=== PATIENT | female | born 2000 | race Caucasian/White ===

== ENCOUNTER 2022-03-23 01:48 | Emergency (ER) | payer OTHER ==
[~2022-03-23] VITALS: Ht 165.1 cm; Wt 63.5 kg
--- NOTE | 2022-03-23 02:14 | NUR ---
Patient came in to the er c/o R shoulde rpain s/p hit on the wall. On room air, breathing normally and unlabored. Kept comfortable, will continue to monitor accordingly.
[2022-03-23] MEDS ORDERED: NAPROXEN 250 MG TABLET ONE (02:42)
[2022-03-23] MEDS ORDERED: NAPROXEN 250 MG TABLET PO ONE (03:00)
--- NOTE | 2022-03-23 04:08 | NUR ---
PT OK TO DISCHARGE HOME PER DR COUGHLIN. Patient discharged to home in stable condition. Written and verbal after care instructions given. Patient verbalizes understanding of instruction.Patient is awake and alert to self, day, and place. PT ambulatory with a steady gait
[2022-03-23 04:09] VITALS: BP 118/75
== END 2022-03-23 04:09 | disposition home or self-care (01) ==
LOC: ER 01:48
DX: S40.011A Contusion of right shoulder, initial encounter (principal); W22.01XA Walked into wall, initial encounter; Y93.89 Activity, other specified; Y92.89 Other specified places as the place of occurrence of the external cause; Y99.8 Other external cause status
CPT/HCPCS: 73030-TC

== ENCOUNTER 2024-04-19 15:27 | Emergency (ER) | payer MEDICAID, OTHER ==
[~2024-04-19] VITALS: Ht 167.6 cm; Wt 61.2 kg
[2024-04-19] MEDS ORDERED: MAG HYDROX/AL HYDROX/SIMETH 30 ML UDC ONE (16:16)
[2024-04-19] MEDS ORDERED: FAMOTIDINE (20 MG) 20 MG TABLET ONE (16:17)
[2024-04-19] MEDS: FAMOTIDINE (20 MG) 20 MG TABLET PO ONE (16:20)
[2024-04-19] MEDS: MAG HYDROX/AL HYDROX/SIMETH 30 ML UDC PO ONE (16:20)
[2024-04-19 16:36] LABS: PREGNANCY TEST URINE QUAL NEGATIVE (NEGATIVE)
[2024-04-19 16:53] LABS: BASOPHILS # (AUTO) 0.1 K/uL (0.0-0.2); BASOPHILS % (AUTO) 1.4 % (0.0-2.0); EOSINOPHILS # (AUTO) 0.5 K/uL (0.0-0.7); EOSINOPHILS % (AUTO) 5.5 % (0.0-6.0); HEMATOCRIT 38 % (33-45); HEMOGLOBIN 12.6 g/dL (11.5-14.8); LYMPHOCYTES # (AUTO) 2.7 K/uL (0.8-4.8); LYMPHOCYTES % (AUTO) 32.2 % (20.0-44.0); MEAN CORPUSCULAR HEMOGLOBIN 28 PG (26.0-33.0); MEAN CORPUSCULAR HGB CONC 33 g/dl (31.0-36.0); MEAN CORPUSCULAR VOLUME 84 fL (82-100); MONOCYTES # (AUTO) 0.6 K/uL (0.1-1.30); MONOCYTES % (AUTO) 7.3 % (2.0-12.0); NEUTROPHILS # (AUTO) 4.5 K/uL (1.8-8.9); NEUTROPHILS % (AUTO) 53.6 % (43.0-81.0); PLATELET COUNT (AUTO) 271 K/uL (150-450); RED BLOOD CELL COUNT(AUTO) 4.48 MIL/uL (4.0-5.2); RED CELL DISTRIBUTION WIDTH 14.6 % (11.5-15.0); WHITE BLOOD COUNT (AUTO) 8.5 K/uL (4.3-11.0)
[2024-04-19 17:02] LABS: CALCIUM, SERUM 8.8 mg/dL (8.5-10.1); CREATININE 0.8 mg/dL (0.6-1.3)
[2024-04-19 17:08] LABS: ALBUMIN 3.4 g/dL (3.4-5.0); BILIRUBIN,DIRECT 0.1 mg/dL (0.0-0.2); BILIRUBIN,TOTAL 0.3 mg/dL (0.2-1.0); TOTAL PROTEIN, SERUM 7.1 g/dL (6.4-8.2)
[2024-04-19 17:30] VITALS: BP 133/68; TEMP 97.9; O2SAT 100
[2024-04-19] MEDS ORDERED: OMEP20TA20 PO (17:35)
== END 2024-04-19 17:43 | disposition home or self-care (01) ==
LOC: ER 15:59
DX: R10.13 Epigastric pain (principal); R11.0 Nausea; Z79.899 Other long term (current) drug therapy
CPT/HCPCS: 36415; 80048-TC; 80076-TC; 83690-TC; 84703-TC; 85025-TC